=== PATIENT | male | born 1950 | race Caucasian/White ===

== ENCOUNTER 2019-04-17 06:39 | Emergency (ER) | payer MEDICARE, OTHER ==
[~2019-04-17] VITALS: Ht 172.7 cm; Wt 98.0 kg
[2019-04-17 06:44] VITALS: Ht 172.7 cm; Wt 98.0 kg
--- NOTE | 2019-04-17 07:26 | ERD ---
ER Documentation Chief Complaint Chief Complaint pt is bib self with c/o urinary retention since yesterday, HPI During the patient's encounter translation services were utilized Language: Turkish Source: Video 69-year-old gentleman history of BPH who presents to the emergency room with proximal 24 hours of symptoms of dysuria urgency and frequency and now unable to fully empty his bladder as of the past hour. Patient describes some mild suprapubic discomfort. No fevers or chills, no flank pain. He denies any testicular pain. ROS All systems reviewed and are negative except as per history of present illness. Medications Home Meds Active Scripts Cephalexin* (Keflex*) 500 Mg Capsule, 500 MG PO BID for 7 Days, CAP Prov:NEETU SHIN MD 04/17/19 Tamsulosin Hcl* (Flomax*) 0.4 Mg Cap.er.24h, 0.4 MG PO QPM for 5 Days, CAP Prov:NEETU SHIN MD 04/17/19 Allergies Allergies: Coded Allergies: No Known Allergy (Unverified , 04/17/19) PMhx/Soc History of Surgery: No Anesthesia Reaction: No Hx Neurological Disorder: No Hx Respiratory Disorders: No Hx Cardiac Disorders: No Hx Psychiatric Problems: No Hx Miscellaneous Medical Probl: Yes (enlarge prostate) Hx Alcohol Use: No Hx Substance Use: No Hx Tobacco Use: No Smoking Status: Never smoker FmHx Family History: No diabetes Physical Exam Vitals Vital Signs Date Temp Pulse Resp B/P (MAP) Pulse Ox O2 O2 Flow FiO2 Time Delivery Rate 04/17/19 98.3 67 16 162/73 98 06:44 (102) Physical Exam General: Well developed, well nourished, no acute distress Head: Normocephalic, atraumatic. Eyes: EOM intact ENT: Moist mucous membranes Neck: Full ROM Respiratory: No respiratory distress Cardiovascular: Well perfused distally Abdominal: Nondistended, suprapubic fullness, no tenderness to McBurney's point : No hernia noted, bilateral descended testicles without focal tenderness or swelling, intact reflexes. MSK: No edema, no unilateral swelling, 5/5 strength Neurologic: Alert and oriented, moving all extremities, normal speech, steady gait Skin: No rash Psych: Normal mood Results 24 hrs Laboratory Tests Test 6/28/19 07:30 Bedside Urine pH (LAB) 7.0 Bedside Urine Protein (LAB) 3+ Bedside Urine Glucose (UA) Negative Bedside Urine Ketones (LAB) 1+ Bedside Urine Blood 3+ Bedside Urine Nitrite (LAB) Positive Bedside Urine Leukocyte Esterase (L 3+ Current Medications Medications Dose Sig/Bernarda Start Time Status Last (Trade) Ordered Route PRN Stop Time Admin Dose Reason Admin Lidocaine 20 ml ONCE ONCE 04/17/19 DC 04/17/19 (Lidocaine MM 07:30 07:15 2% Urojet) 04/17/19 07:31 Procedures/MDM LAB INTERPRETATION: I reviewed the laboratory testing and it shows UTI MEDICAL DECISION MAKING: The patient has clinical findings consistent with possible BPH and concomitant urinary tract infection leading to acute urinary retention. No evidence of hernia or acute interabdominal process that warrant CT imaging. Patient has a benign abdominal examination. He follows up with a urologist. Boss catheter will be placed, leg bag will be applied and the patient can have a removal in 2 days. He will be initiated on Flomax as well as Keflex. ER COURSE: * Boss catheter inserted with > 150cc output of milky urine with some blood * Boss catheter will remain in place. The patient will be started on Keflex. Urine culture is been sent. CONSULTATION: None DISPOSITION PLAN: The patient does not have an identifiable emergent medical condition that warrants inpatient hospitalization at this time. The patient is deemed safe for discharge with outpatient follow-up. We discussed follow up with the patient's primary care doctor within 24 to 48 hours as needed. We also discussed return to the emergency room for worsening symptoms or worsening condition. Outpatient referral: Urology for leg bag removal in 2 days Discharge Medications: Keflex, Flomax Departure Diagnosis: Primary Impression: Retention of urine Additional Impression: Urinary tract infection Urinary tract infection type: acute cystitis Hematuria presence: with hematuria Qualified Codes: N30.01 - Acute cystitis with hematuria Condition: Stable NEETU SHIN MD Apr 17, 2019 07:26
[2019-04-17] MEDS ORDERED: TAMS-14 PO (07:30)
[2019-04-17] MEDS ORDERED: CEPH-443 PO (07:30)
[2019-04-17] MEDS ORDERED: LIDOCAINE 2% 20 ML UROJET SYRINGE MM ONE (07:30)
[2019-04-17 07:43] VITALS: BP 158/72; PULSE 78; RESP 18
== END 2019-04-17 08:22 | disposition home or self-care (01) ==
LOC: E/R 06:39
DX: N30.01 Acute cystitis with hematuria (principal)
CPT/HCPCS: 81003; 87086; 99283